=== PATIENT | female | born 1975 ===

== ENCOUNTER 2017-01-20 11:03 | Emergency (ER) | payer SELFPAY ==
[~2017-01-20] VITALS: Ht 160 cm; Wt 77.1 kg
[2017-01-20 12:08] LABS: URINE SOURCE CLEAN CATCH
[2017-01-20 12:17] LABS: URINE APPEARANCE CLEAR; URINE BILIRUBIN NEG (NEG); URINE BLOOD NEG (NEG); URINE COLOR YELLOW; URINE GLUCOSE >1000 MG/DL (NEG); URINE KETONE NEG (NEG); URINE LEUKOCYTE ESTERASE NEG (NEG); URINE NITRATE NEG (NEG); URINE PROTEIN NEG (NEG); URINE SPECIFIC GRAVITY 1.009 (1.003-1.035); URINE UROBILINOGEN 0.2 MG/DL (NEG)
== END 2017-01-20 12:12 | disposition left against medical advice (07) ==
LOC: CED 11:03
PROVIDERS: Emergency Medicine
DX: R10.11 Right upper quadrant pain (principal); R11.10 Vomiting, unspecified; E11.9 Type 2 diabetes mellitus without complications; Z88.0 Allergy status to penicillin; Z88.1 Allergy status to other antibiotic agents; Z88.8 Allergy status to other drugs, medicaments and biological substances
CPT/HCPCS: 81003; 84703; 99284